=== PATIENT | female | born 1960 | race African-American/Black ===

== ENCOUNTER 2017-01-01 18:55 | Emergency (ER) | payer MEDICAID ==
[~2017-01-01] VITALS: Ht 167.6 cm; Wt 73.7 kg
[~2017-01-01 18:55] MED LIST: AMLO10TA2 PO; DEPRESSION MED PO; ENAL5TAB PO; ESOM20CA PO; HYDR1TAB12 PO; LORA-446 PO; RISP1TAB3 PO; SLEEPING PILL PO
[2017-01-01 18:57] VITALS: BP 134/91
[2017-01-01] MEDS ORDERED: HYDROcodone/APAP 5/325 TABLET ONE (19:09)
[2017-01-01] MEDS ORDERED: HYDROcodone/APAP 5/325 TABLET PO ONE (19:30)
== END 2017-01-01 19:31 | disposition home or self-care (01) ==
LOC: ED 19:25
DX: S46.811A Strain of other muscles, fascia and tendons at shoulder and upper arm level, right arm, initial encounter (principal); G89.29 Other chronic pain; Z90.710 Acquired absence of both cervix and uterus; W19.XXXA Unspecified fall, initial encounter; Y93.89 Activity, other specified; Y92.89 Other specified places as the place of occurrence of the external cause; Y99.8 Other external cause status
CPT/HCPCS: 99283

== ENCOUNTER 2017-05-10 18:17 | Emergency (ER) | payer MEDICAID ==
[~2017-05-10] VITALS: Ht 157.5 cm; Wt 74.0 kg
[2017-05-10] MEDS ORDERED: ASPIRIN 81 MG TABLET CHEW PO ONE (18:30)
[2017-05-10 18:34] VITALS: BP 114/72
[2017-05-10 19:08] LABS: BLOOD UREA NITROGEN 13 mg/dL (7-18)
[2017-05-10 19:12] LABS: IS PT STATUS REG ER OR PRE ER? YES
[2017-05-10 19:54] LABS: DIFF TOTAL CELLS COUNTED 100 CELL DIFF
[2017-05-10 20:01] LABS: VERIFY COUNTS? YES
== END 2017-05-10 20:16 | disposition left against medical advice (07) ==
LOC: ED 20:10
DX: R07.9 Chest pain, unspecified (principal); R06.02 Shortness of breath; I10 Essential (primary) hypertension
CPT/HCPCS: 36415; 71010; 80048; 82040; 84484; 85025; 93005; 99285

== ENCOUNTER 2017-05-13 05:03 | Emergency (ER) | payer MEDICAID ==
[~2017-05-13] VITALS: Ht 167.6 cm; Wt 70.4 kg
[2017-05-13] MEDS ORDERED: ASPIRIN 81 MG TABLET CHEW ONE (05:20)
[2017-05-13] MEDS ORDERED: ASPIRIN 81 MG TABLET CHEW PO ONE (05:30)
[2017-05-13 05:44] LABS: BLOOD UREA NITROGEN 12 mg/dL (7-18)
[2017-05-13 06:02] LABS: IS PT STATUS REG ER OR PRE ER? YES
[2017-05-13] MEDS ORDERED: ONDANSETRON ODT 4 MG ONE (06:11)
[2017-05-13 06:13] VITALS: BP 135/101
[2017-05-13 06:15] LABS: DAU SCREEN DISCLAIMER
[2017-05-13] MEDS ORDERED: ONDANSETRON ODT 4 MG PO ONE (07:00)
== END 2017-05-13 07:11 | disposition home or self-care (01) ==
LOC: ED 05:11
DX: F41.1 Generalized anxiety disorder (principal); F15.129 Other stimulant abuse with intoxication, unspecified; F17.210 Nicotine dependence, cigarettes, uncomplicated; I10 Essential (primary) hypertension; F32.9 Major depressive disorder, single episode, unspecified; F10.129 Alcohol abuse with intoxication, unspecified
CPT/HCPCS: 36415; 71010; 80048; 80307; 82040; 83880; 84484; 85025; 93005; 99285; Q0162

== ENCOUNTER 2017-06-25 04:10 | Emergency (ER) | payer MEDICAID ==
[~2017-06-25] VITALS: Ht 170.2 cm; Wt 69.8 kg
[2017-06-25 04:28] LABS: DAU SCREEN DISCLAIMER
[2017-06-25 04:37] LABS: HCG UR OBC PASS
[2017-06-25 05:43] LABS: HEMATOCRIT 39.7 % (34.6-47.8); HEMOGLOBIN 13.3 g/dL (11.7-16.4); WHITE BLOOD COUNT 4.8 x10^3/uL (3.4-10)
[2017-06-25 05:50] LABS: BLOOD UREA NITROGEN 9 mg/dL (7-18)
[2017-06-25 05:56] VITALS: BP 148/88
[2017-06-25 05:56] LABS: ACETAMINOPHEN < 2 mcg/mL (10-30)
[2017-06-25] MEDS ORDERED: AMLO10TA2 PO (21:26)
== END 2017-06-25 07:32 | disposition home or self-care (01) ==
LOC: ED 07:19
DX: F41.1 Generalized anxiety disorder (principal); F17.210 Nicotine dependence, cigarettes, uncomplicated; G93.40 Encephalopathy, unspecified; F15.10 Other stimulant abuse, uncomplicated
CPT/HCPCS: 36415; 80048; 80307; 80329; 81025; 82040; 85025; 99284; G0479; G0480

== ENCOUNTER 2017-06-25 20:46 | Emergency (ER) | payer MEDICAID ==
[~2017-06-25] VITALS: Ht 165.1 cm; Wt 65.0 kg
[2017-06-25] MEDS ORDERED: AMLO10TA2 PO (21:26)
[2017-06-25] MEDS ORDERED: PROMETHAZINE 25 MG/ML, 1ML ONE (21:30)
[2017-06-25] MEDS ORDERED: HYDROcodone/APAP 5/325 TABLET ONE (21:30)
[2017-06-25] MEDS ORDERED: HYDROcodone/APAP 5/325 TABLET PO ONE (21:30)
[2017-06-25] MEDS ORDERED: PROMETHAZINE 25 MG/ML, 1ML IM ONE (21:30)
[2017-06-25 21:48] LABS: BLOOD UREA NITROGEN 8 mg/dL (7-18)
[2017-06-25 21:51] LABS: ASPARTATE AMINO TRANSFERASE 27 U/L (15-37); HEMATOCRIT 39.1 % (34.6-47.8); HEMOGLOBIN 13.1 g/dL (11.7-16.4); WHITE BLOOD COUNT 5.8 x10^3/uL (3.4-10)
[2017-06-25 21:52] LABS: ACETAMINOPHEN < 2 mcg/mL (10-30)
[2017-06-25 22:25] LABS: IS PT STATUS REG ER OR PRE ER? YES
[2017-06-25 22:45] LABS: DAU SCREEN DISCLAIMER
[2017-06-25] MEDS ORDERED: CEFTRIAXONE 1,000 MG IM ONE (23:30)
[2017-06-25] MEDS ORDERED: CEFTRIAXONE 1,000 MG ONE (23:34)
[2017-06-26] MEDS ORDERED: LORazepam 1MG TABLET ONE (00:14)
[2017-06-26] MEDS ORDERED: LORazepam 1MG TABLET PO ONE (00:30)
[2017-06-26] MEDS ORDERED: ONDANSETRON ODT 4 MG PO ONE (01:00)
[2017-06-26] MEDS ORDERED: ONDANSETRON ODT 4 MG ONE (01:01)
[2017-06-26 01:41] VITALS: BP 147/98
== END 2017-06-26 02:33 | disposition home or self-care (01) ==
LOC: ED 22:26
DX: N12 Tubulo-interstitial nephritis, not specified as acute or chronic (principal); F41.1 Generalized anxiety disorder; F10.20 Alcohol dependence, uncomplicated; I10 Essential (primary) hypertension; G93.40 Encephalopathy, unspecified
CPT/HCPCS: 36415; 70450; 71010; 80053; 80307; 80329; 81001; 84484; 85025; 87086; 93005; 96372; 99285; J0696; J2550; Q0162; G0479; G0480

== ENCOUNTER 2017-06-30 15:28 | Emergency (ER) | payer MEDICAID ==
[~2017-06-30] VITALS: Ht 162.6 cm; Wt 80.0 kg
[2017-06-30] MEDS ORDERED: LORazepam 2 MG/ML, 1ML IVPush ONE ×2 (16:00→17:30)
[2017-06-30] MEDS ORDERED: SODIUM CHLORIDE FLUSH 10ML SYR IVF ONE (16:00)
[2017-06-30] MEDS ORDERED: SODIUM CHLORIDE 0.9% 1,000ML IVBOLUS ONE ×2 (16:00→17:30)
[2017-06-30 16:13] LABS: HEMATOCRIT 37.7 % (34.6-47.8); HEMOGLOBIN 12.7 g/dL (11.7-16.4); WHITE BLOOD COUNT 6.7 x10^3/uL (3.4-10)
[2017-06-30 16:25] LABS: ASPARTATE AMINO TRANSFERASE 54 U/L (15-37); BLOOD UREA NITROGEN 7 mg/dL (7-18)
[2017-06-30 16:31] LABS: IS PT STATUS REG ER OR PRE ER? YES
[2017-06-30] MEDS ORDERED: LORazepam 2 MG/ML, 1ML ONE ×2 (16:55→17:37)
[2017-06-30] MEDS ORDERED: ASPI-515 PO (17:06)
[2017-06-30] MEDS ORDERED: ONDANSETRON 2MG/ML, 2ML IVPush ONE (17:30)
[2017-06-30] MEDS ORDERED: ONDANSETRON 2MG/ML, 2ML ONE (17:38)
[2017-06-30 20:39] VITALS: BP 155/106
== END 2017-06-30 20:57 | disposition home or self-care (01) ==
LOC: ED 17:46
DX: R07.89 Other chest pain (principal); F15.20 Other stimulant dependence, uncomplicated; F10.129 Alcohol abuse with intoxication, unspecified; I10 Essential (primary) hypertension; F32.9 Major depressive disorder, single episode, unspecified
CPT/HCPCS: 36415; 71010; 80053; 84484; 85025; 93005; 96361; 96374; 96375; 99285; J2060; J2405; J7030

== ENCOUNTER 2017-07-10 08:16 | Emergency (ER) | payer MEDICAID ==
[~2017-07-10] VITALS: Ht 165.1 cm; Wt 75.0 kg
[~2017-07-10 08:16] MED LIST changes: +ASPI-515 PO
[2017-07-10] MEDS ORDERED: SODIUM CHLORIDE 0.9% 1,000 ML IV ONE (08:33)
[2017-07-10] MEDS ORDERED: SODIUM CHLORIDE 0.9% 1,000ML IVBOLUS ONE (09:00)
[2017-07-10] MEDS ORDERED: LORazepam 2 MG/ML, 1ML IVPush ONE (09:00)
[2017-07-10 09:01] LABS: HEMATOCRIT 40.2 % (34.6-47.8); HEMOGLOBIN 13.5 g/dL (11.7-16.4)
[2017-07-10 09:07] VITALS: BP 151/96
[2017-07-10] MEDS ORDERED: LORazepam 2 MG/ML, 1ML ONE (09:11)
[2017-07-10 09:12] LABS: BLOOD UREA NITROGEN 12 mg/dL (7-18)
[2017-07-10 09:16] LABS: IS PT STATUS REG ER OR PRE ER? YES
== END 2017-07-10 10:05 | disposition home or self-care (01) ==
LOC: ED 08:21
DX: R06.00 Dyspnea, unspecified (principal); I10 Essential (primary) hypertension
CPT/HCPCS: 36415; 71010; 80048; 80307; 82040; 84484; 85025; 85379; 93005; 96361; 96374; 99285; J2060; J7030; G0479

== ENCOUNTER 2017-10-07 15:40 | Emergency (ER) | payer MEDICAID ==
[~2017-10-07] VITALS: Ht 167.6 cm; Wt 69.0 kg
[2017-10-07 16:26] LABS: BASOPHILS # (AUTO) 0.02 x10^3/uL (0-0.1); BASOPHILS % (AUTO) 0 % (0-1); EOSINOPHILS # (AUTO) 0.03 x10^3/uL (0-0.4); EOSINOPHILS % (AUTO) 1 % (1-7); LYMPHOCYTES # (AUTO) 1.36 x10^3/uL (1-3.4); LYMPHOCYTES % (AUTO) 27 % (22-44); MD NO; MEAN CORPUSCULAR HGB CONC 33.5 g/dL (32.4-35.8); MEAN CORPUSCULAR VOLUME 92.5 fL (80-100); MEAN PLATELET VOLUME 8.6 fL (7.4-10.4); MONOCYTES # (AUTO) 0.26 x10^3/uL (0.2-0.8); MONOCYTES % (AUTO) 5 % (2-9); NEUTROPHILS # (AUTO) 3.36 x10^3/uL (1.8-6.8); NEUTROPHILS % (AUTO) 67 % (42-75); PLATELET COUNT 274 x10^3/uL (130-400); RED BLOOD COUNT 4.01 x10^6/uL (3.82-5.3); RED CELL DISTRIBUTION WIDTH 14.7 % (9.6-15.2)
[2017-10-07] MEDS ORDERED: SODIUM CHLORIDE 0.9% 1,000ML IVBOLUS ONE (16:30)
[2017-10-07] MEDS ORDERED: SODIUM CHLORIDE FLUSH 10ML SYR IVF ONE (16:30)
[2017-10-07 16:38] LABS: ALBUMIN 3.9 g/dL (3.4-5.0); ANION GAP 13 mmol/L (5-15); CALCIUM 8.6 mg/dL (8.5-10.1); CHLORIDE 113 mmol/L (98-107); CREATININE 1.16 mg/dL (0.55-1.02)
[2017-10-07 18:03] VITALS: BP 112/81
== END 2017-10-07 18:19 | disposition home or self-care (01) ==
LOC: ED 18:13
DX: F10.120 Alcohol abuse with intoxication, uncomplicated (principal); G31.2 Degeneration of nervous system due to alcohol; G89.29 Other chronic pain; M25.511 Pain in right shoulder; F32.9 Major depressive disorder, single episode, unspecified; I10 Essential (primary) hypertension; F41.1 Generalized anxiety disorder; Z79.899 Other long term (current) drug therapy
CPT/HCPCS: 36415; 70450; 73030; 80048; 80307; 82040; 85025; 96360; 99285; J7030; G0479

== ENCOUNTER 2018-01-21 17:05 | Emergency (ER) | payer MEDICAID ==
[~2018-01-21] VITALS: Ht 165.1 cm; Wt 72.8 kg
[2018-01-21] MEDS ORDERED: ASPIRIN 81 MG TABLET CHEW PO ONE (17:30)
[2018-01-21] MEDS ORDERED: ASPIRIN 81 MG TABLET CHEW ONE (17:42)
[2018-01-21 18:00] LABS: MEAN CORPUSCULAR HEMOGLOBIN 30.9 pg (27.0-34.8); MEAN CORPUSCULAR HGB CONC 33.7 g/dL (32.4-35.8); MEAN CORPUSCULAR VOLUME 91.5 fL (80-100); MEAN PLATELET VOLUME 8.8 fL (7.4-10.4); PLATELET COUNT 261 x10^3/uL (130-400); RED BLOOD COUNT 4.46 x10^6/uL (3.82-5.3); RED CELL DISTRIBUTION WIDTH 14.2 % (9.6-15.2)
[2018-01-21 18:03] LABS: ALBUMIN 4.4 g/dL (3.4-5.0); ANION GAP 11 mmol/L (5-15); CALCIUM 9.1 mg/dL (8.5-10.1); CHLORIDE 111 mmol/L (98-107); CREATININE 0.91 mg/dL (0.55-1.02)
[2018-01-21] MEDS ORDERED: LORazepam 1MG TABLET ONE (18:09)
[2018-01-21] MEDS ORDERED: ONDANSETRON ODT 4 MG ONE (18:13)
[2018-01-21 18:19] LABS: BASOPHILS # (AUTO) 0.07 x10^3/uL (0-0.1); BASOPHILS % (AUTO) 1 % (0-1); EOSINOPHILS # (AUTO) 0.04 x10^3/uL (0-0.4); EOSINOPHILS % (AUTO) 1 % (1-7); LYMPHOCYTES # (AUTO) 3.36 x10^3/uL (1-3.4); LYMPHOCYTES % (AUTO) 52 % (22-44); MD SCAN; MONOCYTES % (AUTO) 6 % (2-9); NEUTROPHILS # (AUTO) 2.61 x10^3/uL (1.8-6.8); NEUTROPHILS % (AUTO) 40 % (42-75)
[2018-01-21] MEDS ORDERED: LORazepam 1MG TABLET PO ONE (18:30)
[2018-01-21] MEDS ORDERED: ONDANSETRON ODT 4 MG PO ONE (18:30)
[2018-01-21 18:38] LABS: TROPONIN I < 0.015 ng/mL (0.000-0.045)
[2018-01-21] MEDS ORDERED: AMLODIPINE 5 MG TABLET ONE (19:03)
[2018-01-21 19:05] VITALS: BP 179/109
[2018-01-21] MEDS ORDERED: AMLODIPINE 5 MG TABLET PO ONE (19:30)
== END 2018-01-21 19:52 | disposition home or self-care (01) ==
LOC: ED 19:00
DX: R07.89 Other chest pain (principal); F41.1 Generalized anxiety disorder; Z72.9 Problem related to lifestyle, unspecified; F15.20 Other stimulant dependence, uncomplicated; F32.9 Major depressive disorder, single episode, unspecified; I10 Essential (primary) hypertension; I48.91 Unspecified atrial fibrillation
CPT/HCPCS: 36415; 71045; 71046; 80048; 82040; 84484; 84703; 85025; 93005; 99285; Q0162

== ENCOUNTER 2018-05-02 00:40 | Emergency (ER) | payer MEDICAID ==
[~2018-05-02] VITALS: Ht 167.6 cm; Wt 70.0 kg
[2018-05-02 00:44] VITALS: BP 136/84
== END 2018-05-02 01:33 | disposition home or self-care (01) ==
LOC: ED 01:20
DX: Z72.89 Other problems related to lifestyle (principal)
CPT/HCPCS: 99283; 99284

== ENCOUNTER 2018-06-09 00:51 | Emergency (ER) | payer MEDICAID ==
[~2018-06-09] VITALS: Ht 167.6 cm; Wt 70.0 kg
[2018-06-09] MEDS ORDERED: SODIUM CHLORIDE 0.9% 1,000ML IVBOLUS ONE (01:30)
[2018-06-09] MEDS ORDERED: PROCHLORPERAZINE 5 MG/ML, 2ML IVPush ONE (01:30)
[2018-06-09] MEDS ORDERED: SODIUM CHLORIDE FLUSH 10ML SYR IVF ONE (01:30)
[2018-06-09] MEDS ORDERED: DIPHENHYDRAMINE 50 MG/ML, 1ML IVPush ONE (01:30)
[2018-06-09] MEDS ORDERED: KETOROLAC 30 MG/1 ML IVPush ONE (01:30)
[2018-06-09] MEDS ORDERED: PROCHLORPERAZINE 5 MG/ML, 2ML ONE (02:24)
[2018-06-09] MEDS ORDERED: DIPHENHYDRAMINE 50 MG/ML, 1ML ONE (02:24)
[2018-06-09] MEDS ORDERED: KETOROLAC 30 MG/1 ML ONE (02:24)
[2018-06-09 03:17] LABS: BASOPHILS # (AUTO) 0.04 x10^3/uL (0-0.1); BASOPHILS % (AUTO) 1 % (0-1); EOSINOPHILS # (AUTO) 0.05 x10^3/uL (0-0.4); EOSINOPHILS % (AUTO) 1 % (1-7); LYMPHOCYTES % (AUTO) 55 % (22-44); MD NO; MEAN CORPUSCULAR HEMOGLOBIN 30.8 pg (27.0-34.8); MEAN CORPUSCULAR HGB CONC 33.4 g/dL (32.4-35.8); MEAN CORPUSCULAR VOLUME 92.2 fL (80-100); MEAN PLATELET VOLUME 8.4 fL (7.4-10.4); MONOCYTES # (AUTO) 0.31 x10^3/uL (0.2-0.8); MONOCYTES % (AUTO) 7 % (2-9); NEUTROPHILS % (AUTO) 37 % (42-75); PLATELET COUNT 315 x10^3/uL (130-400); RED CELL DISTRIBUTION WIDTH 15.4 % (9.6-15.2)
[2018-06-09 03:27] LABS: ALBUMIN 4.4 g/dL (3.4-5.0); ANION GAP 6 mmol/L (5-15); CALCIUM 9.2 mg/dL (8.5-10.1); CHLORIDE 108 mmol/L (98-107)
[2018-06-09 03:29] LABS: CREATININE 0.94 mg/dL (0.55-1.02)
[2018-06-09 03:49] VITALS: BP 135/95
== END 2018-06-09 04:24 | disposition home or self-care (01) ==
LOC: ED 02:14
DX: G43.C0 Periodic headache syndromes in child or adult, not intractable (principal); F10.120 Alcohol abuse with intoxication, uncomplicated
CPT/HCPCS: 36415; 70450; 80048; 80307; 82040; 85025; 96361; 96374; 96375; 99285; J0780; J1200; J1885; J7030

== ENCOUNTER 2018-10-04 05:49 | Emergency (ER) | payer MEDICAID ==
[~2018-10-04] VITALS: Ht 167.6 cm; Wt 78.0 kg
[~2018-10-04 05:49] MED LIST changes: -AMLO10TA2 PO; +AMLO10TA6 PO
--- NOTE | 2018-10-04 06:12 | NUR ---
PT AMBULATED TO ROOM WITH [facility]. PT WALKED WITH STEADY GAIT.
--- NOTE | 2018-10-04 06:48 | NUR ---
Recieved bedside report from JOSE Ronquillo. All questions answered. Assuming care of this pt. Pt resting on gurney connected to all monitors. All safety measures in place. Call light within reach. NADN. No needs expressed at this time. Pt has unlabored respirations equal bilaterally, skin is appropriate for ethnicity, warm, and dry.
[2018-10-04 07:06] VITALS: BP 117/79
--- NOTE | 2018-10-04 07:59 | NUR ---
Patient given discharge instructions and they have confirmed that they understand the instructions. Patient ambulatory with steady gait. Pt left with all discharge paperwork, personal belongings, and bus pass.
--- NOTE | 2018-10-04 07:59 | NUR ---
LATE NOTE ENTRY FOR 0752: Pt ambulates with steady gait and balance. Pt requests bus pass to get to [address].
== END 2018-10-04 08:02 | disposition home or self-care (01) ==
LOC: ED 07:53
DX: F10.120 Alcohol abuse with intoxication, uncomplicated (principal); F41.1 Generalized anxiety disorder; Z72.9 Problem related to lifestyle, unspecified
CPT/HCPCS: 99283

== ENCOUNTER 2018-10-05 18:15 | Emergency (ER) | payer MEDICAID ==
[~2018-10-05] VITALS: Ht 170.2 cm; Wt 75.0 kg
[2018-10-05 18:17] VITALS: BP 138/98
--- NOTE | 2018-10-05 19:43 | NUR ---
PT YELLING AND CURSING AT RN UPON DC. SECURITY NOTIFIED TO ASSIST PT OUT. PT AMBULATES WITHOUT ASSISTANCE
== END 2018-10-05 19:45 | disposition home or self-care (01) ==
LOC: ED 18:52
DX: F10.120 Alcohol abuse with intoxication, uncomplicated (principal); R06.00 Dyspnea, unspecified; Z90.710 Acquired absence of both cervix and uterus
CPT/HCPCS: 99283

== ENCOUNTER 2018-12-11 00:08 | Emergency (ER) | payer MEDICAID ==
[~2018-12-11] VITALS: Ht 167.6 cm; Wt 85.0 kg
[~2018-12-11 00:08] MED LIST changes: -AMLO10TA6 PO; +AMLO10TA8 PO; -HYDR1TAB12 PO; +HYDR1TAB13 PO
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
--- NOTE | 2018-12-11 01:07 | NUR ---
PT RESTING IN ROOM. REGULAR RESP. NO ACUTE DISTRESS NOTED. VS STABLE. WILL CONTINUE TO MONITOR.
--- NOTE | 2018-12-11 02:01 | NUR ---
PT RESTING IN ROOM. NO ACUTE DISRESS NOTED. VS STABLE. WILL CONTINUE TO MONITOR.
--- NOTE | 2018-12-11 03:23 | NUR ---
PT RESTING IN ROOM. NO ACUTE DISTRESS NOTED. CALL LIGHT IN PLACE. WILL CONTINUE TO MONITOR.
--- NOTE | 2018-12-11 03:33 | NUR ---
REPORT GIVEN TO JOSE NINO
--- NOTE | 2018-12-11 03:58 | NUR ---
PT AWAKENS EASILY TO VOICE. POC DISCUSSED. PT AGREEABLE TO ATTEMPT AMBULATION IN 30 MINUTES. VSS NAD.
--- NOTE | 2018-12-11 04:38 | NUR ---
PT UP OUT OF BED AND ABLE TO PUT HER SHOES ON WITH EASE. POC DISCUSSED. PT TO BE GIVEN TAXI VOUCHER FOR DC.
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
[2018-12-11 05:06] VITALS: BP 109/74
--- NOTE | 2018-12-11 05:09 | NUR ---
PT IN LOBBY YELLING THAT SHE DIDNT GET A TAXI VOUCHER. PT STATES "IT AINT IN MY MOTHER PHILL' POCKET!" PT THEN PULLED HER HANDS OUT OF HER POCKET, UNCRUMPLED PAPER AND FOUND HER VOUCHER. PT AMBULATES AGAIN TO TAXI WITH STEADY GAIT.
== END 2018-12-11 05:10 | disposition home or self-care (01) ==
LOC: ED 00:58
DX: F10.120 Alcohol abuse with intoxication, uncomplicated (principal); I10 Essential (primary) hypertension
CPT/HCPCS: 99283

== ENCOUNTER 2019-01-05 14:57 | Emergency (ER) | payer MEDICAID ==
[~2019-01-05] VITALS: Ht 165.1 cm; Wt 68.0 kg
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
--- NOTE | 2019-01-05 15:58 | NUR ---
Pt moved to rm 2 from 37 for sitter purposes. Pt is screaming intermittently & attempting to spit on floor. Assisted onto bedside commode & then back into bed by this RN & 3 other staff members. SR up x2, room dimmed. Pt fell asleep quickly & SPO2 dropped to 77% with a good waveform. Able to wake her up with loud V & oxymask @ 10L placed. Sats 95% with mask IP. Pt back to sleep, sitter directly visualizing & continuous pulse ox/intermittent NIBP remains.
[2019-01-05 16:17] LABS: MEAN CORPUSCULAR HEMOGLOBIN 30.2 pg (27.0-34.8); MEAN CORPUSCULAR HGB CONC 32.5 g/dL (32.4-35.8); MEAN CORPUSCULAR VOLUME 92.8 fL (80-100); MEAN PLATELET VOLUME 8.7 fL (7.4-10.4); PLATELET COUNT 310 x10^3/uL (130-400); RED BLOOD COUNT 4.15 x10^6/uL (3.82-5.3); RED CELL DISTRIBUTION WIDTH 15.6 % (9.6-15.2)
--- NOTE | 2019-01-05 16:25 | NUR ---
Periodically screams & removes oxymask, somewhat redirectable. Sitter remains directly visualizing.
[2019-01-05 16:32] LABS: ALANINE AMINOTRANSFERASE 40 U/L (12-78); ALBUMIN 4.1 g/dL (3.4-5.0); ANION GAP 8 mmol/L (5-15); CALCIUM 8.6 mg/dL (8.5-10.1); CHLORIDE 112 mmol/L (98-107)
[2019-01-05 16:35] LABS: SALICYLATE LEVEL < 1.7 mg/dL (2.8-20.0)
[2019-01-05 16:45] LABS: ALKALINE PHOSPHATASE 142 U/L (45-117); BILIRUBIN,TOTAL 0.2 mg/dL (0.2-1.0); CREATININE 0.91 mg/dL (0.55-1.02); TOTAL PROTEIN 7.5 g/dL (6.4-8.2)
[2019-01-05 16:46] LABS: ACETAMINOPHEN < 2 mcg/mL (10-30)
[2019-01-05 16:52] LABS: BASOPHILS # (AUTO) 0.01 x10^3/uL (0-0.1); BASOPHILS % (AUTO) 0 % (0-1); EOSINOPHILS # (AUTO) 0.04 x10^3/uL (0-0.4); EOSINOPHILS % (AUTO) 1 % (1-7); LYMPHOCYTES # (AUTO) 2.49 x10^3/uL (1-3.4); LYMPHOCYTES % (AUTO) 58 % (22-44); MD SCAN; MONOCYTES # (AUTO) 0.27 x10^3/uL (0.2-0.8); MONOCYTES % (AUTO) 6 % (2-9); NEUTROPHILS # (AUTO) 1.51 x10^3/uL (1.8-6.8); NEUTROPHILS % (AUTO) 35 % (42-75)
--- NOTE | 2019-01-05 16:54 | NUR ---
Pt resting, eyes closed still wearing oxygen mask.
--- NOTE | 2019-01-05 17:32 | NUR ---
Slightly more alert & cooperative. Able to remove oxymask & place on nasal cannula @4l to maintain sats. Assisted OOB to BS commode.
--- NOTE | 2019-01-05 18:27 | NUR ---
Pt yelling more frequently & requiring more redirection & intervention. Agrees to be quieter if we feed her. Still unsteady on feet & requires help to get on BS commode. Meal tray ordered.
--- NOTE | 2019-01-05 18:59 | NUR ---
REPORT RECEIVED FROM JOSE CARLSON, ASSUMED CARE OF PT. PT YELLING AND CURSING, WORSE WHEM SOMEONE ENTERS ROOM. VSS, CALL LIGHT IN REACH
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
[2019-01-05 19:51] VITALS: BP 137/80
== END 2019-01-05 19:58 | disposition home or self-care (01) ==
LOC: MERGE 14:57 → ED 19:23
DX: F10.129 Alcohol abuse with intoxication, unspecified (principal); F41.9 Anxiety disorder, unspecified; F19.14 Other psychoactive substance abuse with psychoactive substance-induced mood disorder
CPT/HCPCS: 36415; 80053; 80307; 80329; 82140; 85025; 99283; G0480